=== PATIENT | male | born 1970 | race Caucasian/White ===

== ENCOUNTER 2019-07-08 12:27 | Emergency (ER) | payer OTHER ==
[2019-07-08] MEDS ORDERED: 0.9 % SODIUM CHLORIDE 1,000 ML BAG IV ONE (13:00)
[2019-07-08] MEDS ORDERED: ONDANSETRON HCL IV 4 MG/2 ML VIAL IV ONE (13:00)
[2019-07-08] MEDS ORDERED: ACETAMINOPHEN 1,000 MG/100 ML BTL IVPB ONE (13:01)
--- NOTE | 2019-07-08 13:04 | Emergency Department Record ---
History of Present Illness - General Chief complaint: Flank Pain Stated complaint: LT FLANK PAIN Time Seen by Provider: 07/08/19 12:54 Source: Patient Mode of Arrival: Ambulatory Limitations: No limitations - History of Present Illness Initial comments: The patient is here due to the acute onset of L flank pain about 3 hours ago. The pain is sharp and stabbing and intermittently radiates to the L groin. The patient is nauseated but has not vomited. He does have a remote hx of kidney stones and this feels like another. MD Complaint: Other Onset/Timin -: Hour(s) Location: Left flank Severity scale (1-10): 10 Quality: Sharp Reports: Nausea/vomiting - Related Data Home Medications Medication Instructions Recorded Confirmed Last Taken Cetirizine HCl 5 mg PO DAILY 07/08/19 07/08/19 07/08/19 Allergies Allergy/AdvReac Type Severity Reaction Status Date / Time No Known Allergies Allergy Unverified 04/02/15 10:58 Travel/Exposure Screening - Travel/Exposure Within Last 30 Days Have you traveled within the last 30 days?: No - Travel/Exposure Within Last Year Have you traveled outside the [place] in the last year?: No - Additonal Travel/Exposure Details Have you been exposed to anyone with a communicable illness?: No - Travel Symptoms Symptom Screening: None Review of Systems Constitutional: Denies: Chills, Fever Eyes: Denies: Eye discharge ENT: Denies: Congestion Respiratory: Denies: Cough, Dyspnea Past Medical History - SOCIAL HISTORY Smoking Status: Never smoker Alcohol Use: Occasional Drug Use: None - RESPIRATORY Hx Respiratory Disorders: Yes Hx Asthma: Yes - CARDIOVASCULAR Hx Cardio Disorders: No - NEURO Hx Neuro Disorders: Yes Hx Headaches: Yes - GI Hx GI Disorders: Yes Hx Reflux: Yes Hx Ulcer: Yes - Hx Genitourinary Disorders: Yes Hx Kidney Stones: Yes - ENDOCRINE Hx Endocrine Disorders: No - MUSCULOSKELETAL Hx Musculoskeletal Disorders: No - PSYCH Hx Psych Problems: No - HEMATOLOGY/ONCOLOGY Hx Hematology/Oncology Disorders: No Family Medical History Any Significant Family History?: No Physical Exam - General General Appearance: Alert, Oriented x3, Cooperative, Mild distress (due to the L flank pain.) - Head Head exam: Atraumatic, Normocephalic - Eye Eye exam: Normal appearance, PERRL - Neck Neck exam: Normal inspection, Full ROM. negative: Tenderness - Respiratory Respiratory exam: Normal lung sounds bilaterally. negative: Respiratory distress - Cardiovascular Cardiovascular Exam: Regular rate, Normal rhythm, Normal heart sounds - GI/Abdominal GI/Abdominal exam: Soft, Normal bowel sounds, Tenderness (There is mild LUQ tenderness.). negative: Rebound, Rigid - Extremities Extremities exam: Normal inspection, Full ROM, Normal capillary refill. negative: Tenderness - Neurological Neurological exam: Alert. negative: Motor sensory deficit Course Vital Signs 07/08/19 12:36 Temperature 97.4 F L Pulse Rate 60 Respiratory 18 Rate Blood Pressure 158/82 Pulse Ox 100 - Reevaluation(s) Reevaluation #1: The patient is doing better but is still having intermittent pain. He was initially in quite a lot of pain and does have a 6 mm stone at the L UPJ. I did discuss the case with Dr. Ayala and he would like to directly admit the patient to [facility] and will take him to surgery tomorrow. 07/08/19 14:54 Medical Decision Making - Data Complexity MDM Data: Labs Ordered and/or Reviewed, X-Ray Ordered and/or Reviewed - Lab Data Result diagrams: 07/08/19 12:52 07/08/19 12:52 - Radiology Data Radiology results: Report reviewed (CT: 5x6 mm stone L UPJ with hydro.) Disposition Disposition: Transfer Clinical Impression: Ureteral stone with hydronephrosis Disposition: Acute Care Hospital Transfer Transfer To: [facility] Reason For Transfer: Urology Accepting Physician: Jamie Time Discussed w/Accepting Physician: 16:07 Condition: (2) Stable Additional Instructions: Please proceed to [facility] for a direct admission. Forms: Patient Portal Access Time of Disposition: 16:08 Quality - Quality Measures Quality Measures: N/A - Blood Pressure Screening View Details: Yes Does Patient Have Any of the Following: No Blood Pressure Classification: Hypertensive Reading Systolic Measurement: 137 Diastolic Measurement: 91 Screening for High Blood Pressure: < First Hypertensive BP, F/U Documented > [[id number]] First Hypertensive Follow-up Interventions: Referral to alternative/primary care provider.
[2019-07-08] MEDS ORDERED: KETOROLAC 30 MG/ML VIAL IVP ONE (13:06)
[2019-07-08 13:09] LABS: ABSOLUTE NEUTROPHIL COUNT 6.26; BASO % 0.4 % (0-6); EOS % 1.9 % (0-6); GRAN % 73.9 % (47-80); HEMATOCRIT 43.4 % (42.0-52.0); HEMOGLOBIN 14.8 gm/dl (14.0-18.0); MEAN CELL VOLUME 85.3 fl (81-97); MEAN CORPUSCULAR HEMOGLOBIN 29.1 pg (27-33); MEAN CORPUSCULAR HGB CONC 34.1 g/dl (32-36); MEAN PLATELET VOLUME 9.9 fl (7.4-10.4); MONO % 6.8 % (0-9); PLATELET COUNT 395 K/uL (130-400); RED BLOOD COUNT 5.09 M/uL (4.40-5.70); RED CELL DISTRIBUTION WIDTH 12.5 % (11.5-14.5); WHITE BLOOD COUNT W/O DIFF 8.5 K/uL (4.2-12.2)
[2019-07-08 13:18] LABS: BLOOD UREA NITROGEN 24 mg/dL (6-20); CREATININE 1.3 mg/dL (0.7-1.2); EST GLOMERULAR FILTRATION RATE > 60 mL/min
[2019-07-08 13:20] LABS: GLUCOSE,RANDOM 108 mg/dL (74-109)
[2019-07-08] MEDS ORDERED: ONDANSETRON HCL IV 4 MG/2 ML VIAL IVP ONE (13:45)
[2019-07-08] MEDS ORDERED: HYDROMORPHONE HCL 2 MG/ML VIAL IVP ONE ×2 (13:45→16:15)
--- NOTE | 2019-07-08 13:58 | CT SCAN REPORT ---
EXAMINATION: CT Abdomen and Pelvis without IV Contrast EXAM DATE: 07/08/2019 1:27 PM TECHNIQUE: Standard protocol CT imaging of the abdomen and pelvis was performed without intravenous c ontrast. INDICATION: L flank pain with hx [place] COMPARISON: None ENCOUNTER: Not applicable CT ABDOMEN AND PELVIS FINDINGS: Lung Bases: Included extent of the lung bases are clear. Hepatobiliary: The liver has a normal size with a smooth surface. There is no biliary dilatation and the gallbladder is unremarkable. Pancreas: No inflammatory change Spleen: The spleen is not enlarged. Adrenals: The adrenal glands are normal. Right kidney and ureter: No renal or ureteral calculi. No hydronephrosis. Left kidney and ureter: 5 x 6 mm calculus at the left ureteropelvic junction. No additional renal or ureteral calculi. Mild hydronephrosis. Urinary bladder: No calculi or abnormal wall thickening. Gastrointestinal: Cecum is in the low pelvis. There is fecalization of the terminal ileum, likely fro m incompetency of the ileocecal valve. The appendix is not identified. Reproductive Organs: Normal sized prostate gland Lymphatic System: There is no adenopathy within the abdomen or pelvis. Vasculature: Normal caliber abdominal aorta Peritoneum: No free fluid, free air, or inflammation Abdominal wall & Musculoskeletal: Mild degenerative change at T11-12. Assessment of the solid organs, soft tissues, and vascular structures is overall limited on noncontra st imaging, IMPRESSION: 5 x 6 mm calculus at the left ureteropelvic junction causing mild obstructive uropathy. Dictated by: Brigida Solares MD on 07/08/2019 1:50 PM. .
[2019-07-08 14:13] LABS: URINE APPEARANCE CLEAR; URINE BILIRUBIN NEGATIVE (NEGATIVE); URINE BLOOD LARGE (NEGATIVE); URINE COLOR YELLOW; URINE GLUCOSE (UA) NEGATIVE (NEGATIVE); URINE KETONE NEGATIVE (NEGATIVE); URINE LEUKOCYTE ESTERASE NEGATIVE (NEGATIVE); URINE NITRITE NEGATIVE (NEGATIVE); URINE PROTEIN NEGATIVE (NEGATIVE); URINE UROBILINOGEN 0.2 E.U./dL (0.20 - 1.00)
[2019-07-08 14:23] LABS: URINE EPITHELIAL CELLS NONE SEEN (FEW); URINE WBC NONE SEEN (0-2/hpf)
== END 2019-07-08 16:40 | disposition short-term general hospital (02) ==
LOC: ER 12:27
DX: N13.2 Hydronephrosis with renal and ureteral calculous obstruction (principal); R11.0 Nausea; Z87.442 Personal history of urinary calculi
CPT/HCPCS: 99285; 96376; 96374; 96375; 99284; 85025; 80048; 81001; 74176; J1885; J2405; J1170; J7030